=== PATIENT | male | born 1935 | race Caucasian/White ===

== ENCOUNTER 2024-06-15 06:08 | Inpatient (IN) | payer MEDICARE, BC, SELFPAY ==
[2024-05-18 13:06] VITALS: BMI 30.8
[2024-05-18 14:36] LABS: Hematocrit 32.8 % (39.0-52.0); Mean Corp Hgb Conc. 33.5 g/dL (33.0-37.0); Mean Corpuscular Hgb 31.5 pg (27.0-31.0); Platelet Count 162 10^3/uL (130-400); Red Blood Cell Count 3.49 10^6/uL (4.70-6.10); Red Cell Dist. Width 13.8 % (11.5-14.5); White Blood Cell Count 7.2 10^3/uL (4.8-10.8)
[2024-05-18 14:55] LABS: ALT (SGPT) 19 U/L (0-50); AST (SGOT) 25 U/L (17-59); Albumin 4.1 g/dl (3.5-5.0); Alkaline Phosphatase 84 U/L (38-126); Blood Urea Nitrogen 33 mg/dl (9-20); Calcium 9.2 mg/dl (8.4-10.2); Carbon Dioxide 20 mmol/L (22-30); Chloride 109 mmol/L (98-107); Estimated Creatinine Clearance 35 ml/min; Glucose 119 mg/dl (70-99); Potassium 4.4 mmol/L (3.5-5.1); Sodium 143 mmol/L (135-145); Total Bilirubin 0.3 mg/dl (0.2-1.3); eGFR 44.78
[2024-05-19 08:41] LABS: Glycohemoglobin (HgbA1c) 5.3 % (4.0-5.6)
[2024-06-09 11:50] VITALS: BMI 30.8
--- NOTE | 2024-06-09 16:16 | PTCARENOTE ---
Patient has PPM, unable to obtain instructions for OR management due to the Costumed Character Entertainer [place] after the surgery, Dr. Gonzalez made aware, ECHO, Pacer Interrogation and ECG scanned. This is sufficient per Dr. Gonzalez.
[2024-06-15] VITALS (12 sets, daily range): BP systolic 124–169; BP diastolic 56–77; PULSE 68; O2SAT 96
[2024-06-15] MEDS: CELEBREX 200 MG PO (06:26)
[2024-06-15] MEDS: TYLENOL 650 MG PO ×4 (06:26→21:14)
[2024-06-15 06:38] LABS: Glucose - Point of Care 120 mg/dl (70-99)
[2024-06-15 08:54] LABS: Glucose - Point of Care 105 mg/dl (70-99)
[2024-06-15] MEDS: ROXICODONE 5 MG PO ×2 (09:37→22:07)
[2024-06-15] MEDS: NSS 1000 IV (09:59)
[2024-06-15] MEDS: TYLENOL PO (10:00)
--- NOTE | 2024-06-15 11:03 | PTCARENOTE ---
pt admitted to 2S room 2117 from the PACU at 1000. pt arrived awake and alert, oriented to room, bed controls, call gill and plan of care with verbalized understanding. admission database and assessment completed as documented. Pt denies pain,
Right knee surgical dressing clean and dry, ice pack in place. +sensation, +pulses, good movement to both feet. daughter at bedside. AV paced on telemetry. care ongoing.
--- NOTE | 2024-06-15 11:09 | W.PN.ORTHO ---
Today's Communication / Plan
-
D/c when clinically stable.
Assessment
.
Distal Motor Intact: Yes
Dressing:
Clean, dry and intact.
Assessment:
R knee OA s/p R TKA w/ Dr Pena 06/15/24
DVT prophylaxis - ASA, b/l venous foot pumps
HTN - + parameters - monitor BP
Multivessel CAD/remote ID, status post PTCA of RCA 1987, PCI w/ stent to mid LAD 2000 and 2016, and PCI w/ SHLOMO to proximal-mid LAD for restenosis 2021
- Resume Plavix when hemodynamically stable
- Continue ASA but at 325 mg daily dosing x4 weeks for blood clot prevention
Chronic diastolic HF and pulm HTN - reduce hourly IVF rate to prevent fluid overload
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
CKD stage 3b - minimize nephrotoxins
NIDDM, A1c 5.3 - monitor BS
- Resume home meds
- + SSI
- Has Decadron at home. In discussing with pt, will attempt to hold this medication for now. If pain intensifies by tomorrow, can consider. Pt notably has well controlled diabetes as evidenced by A1c.
- Will benefit from prophylactic Cefadroxil upon d/c
GERD - continue PPI therapy
Anemia of chronic disease - non-invasive hgb in AM
HLD
Unstable angina
Mild-moderate TR
Mild MR
Acute hypoxic respiratory failure 2* pulmonary edema 04/2022
Colon polyps
Diverticulosis
Multilevel DDD w/ stenosis
Remote retinal detachment
[place] b/l
Obesity, BMI 30.8
Remote tobacco abuse
Plan
.
Surgery / Date: R TKA w/ Dr Pena 06/15/24
DVT Prophylaxis: Aspirin
Activity:
Out of bed.
PT/OT
Discharge Plan: Home w/ Outpatient PT
Subjective
.
.:
Patient resting comfortably in his room.
R knee pain minimal and well tolerated.
Denies any new significant complaints.
Vital Signs and Labs
.
Vital Signs and Labs:
Lab Results
05/18/24 12:40
05/18/24 12:40
Temp Pulse Resp BP Pulse Ox
98.7 F 71 16 169/77 97
06/15/24 06:12 06/15/24 06:12 06/15/24 06:12 06/15/24 06:12 06/15/24 06:12
Physical Exam
-
HEENT: No pallor, cyanosis, or jaundice. Throat clear.
NECK: Supple. No JVD.
RESPIRATORY: Lungs clear to auscultation.
CVS: S1, S2 normal. RRR.�+PPM.
ABDOMEN: Soft, non-tender. No distension. Obese.
EXTREMITIES: Strength equal, no calf pain with palpation/dorsiflexion. Calves soft.
MOLD DESIGN ENGINEER: AOx3. No focal deficits. event staff grossly intact
[2024-06-15 13:11] LABS: Glucose - Point of Care 282 mg/dl (70-99)
[2024-06-15] MEDS: PROTONIX 40 MG PO (13:17)
[2024-06-15] MEDS: GLUCOPHAGE XR EXTENDED RELEASE PO (13:27)
[2024-06-15] MEDS: AMARYL 1 MG PO (13:27)
[2024-06-15] MEDS: NOVOLOG FLEXPEN-MODERATE RESISTANCE 5 UNITS SC (13:28)
[2024-06-15] MEDS: ANCEF 5 IV ×2 (16:02→22:08)
[2024-06-15 16:36] LABS: Glucose - Point of Care 239 mg/dl (70-99)
[2024-06-15] MEDS: GLUCOPHAGE XR EXTENDED RELEASE 500 MG PO (17:42)
[2024-06-15] MEDS: ASPIRIN 325 MG PO (17:42)
[2024-06-15] MEDS: NOVOLOG FLEXPEN-MODERATE RESISTANCE 3 UNITS SC (17:43)
[2024-06-15 21:13] LABS: Glucose - Point of Care 338 mg/dl (70-99)
[2024-06-15] MEDS: LIPITOR 40 MG PO (21:14)
[2024-06-15] MEDS: DIOVAN 80 MG PO (21:14)
[2024-06-15] MEDS: COREG 12.5 MG PO (21:14)
[2024-06-15] MEDS: FARXIGA 10 MG PO (21:14)
[2024-06-15] MEDS: BACTROBAN 2% OINTMENT 1 APPLIC NASAL (21:15)
[2024-06-15] MEDS: SENOKOT 17.2 MG PO (21:15)
[2024-06-15] MEDS: COLACE 100 MG PO (21:15)
[2024-06-16] MEDS: TYLENOL PO (00:13)
[2024-06-16] MEDS: TYLENOL 650 MG PO ×3 (02:32→12:55)
[2024-06-16 03:02] VITALS: BP 123/56
[2024-06-16 07:49] LABS: Glucose - Point of Care 140 mg/dl (70-99)
[2024-06-16] MEDS: NOVOLOG FLEXPEN-MODERATE RESISTANCE SC ×2 (07:58→12:56)
[2024-06-16] MEDS: AMARYL 1 MG PO (08:02)
[2024-06-16] MEDS: BACTROBAN 2% OINTMENT 1 APPLIC NASAL (08:02)
[2024-06-16] MEDS: COREG 12.5 MG PO (08:04)
[2024-06-16] MEDS: ASPIRIN 325 MG PO (08:04)
[2024-06-16] MEDS: COLACE 100 MG PO (08:04)
[2024-06-16] MEDS: GLUCOPHAGE XR EXTENDED RELEASE 500 MG PO (08:04)
[2024-06-16] MEDS: SENOKOT 17.2 MG PO (08:05)
[2024-06-16] MEDS: PROTONIX 40 MG PO (08:05)
[2024-06-16 08:06] VITALS: BP 131/64
[2024-06-16] MEDS: ROXICODONE 5 MG PO ×2 (08:08→13:00)
[2024-06-16 09:30] VITALS: BP 118/63; BP 149/60; PULSE 66; O2SAT 96
--- NOTE | 2024-06-16 10:02 | CM ---
Addendum entered by Hyacinth Robertson RN 06/16/24 11:39:
CM confirmed with Tiny at [facility] they are able to accept the patient.
Addendum entered by Hyacinth Robertson RN 06/16/24 10:54:
[facility] fax: [phone]
Original Note:
Reviewed the chart notes and spoke with the patient at the bedside. The patient resides alone in an independent apartment at [facility]. The patient has a rolling walker, cane, bsc, shower chair, and shower rails. The patient
reports no VN or SNF in the past. The patient confirmed his pharmacy of choice is [facility]. Consult received for home care. Discussed with patient options of agencies. Patient selected [facility]. Referral sent in [facility].
The patient's daughter will be providing transportation home and will stay the night with the patient. CM continues to be available to patient/family and is monitoring medical plan for needs at discharge.
Plan: Discharge to home with [facility] services.
--- NOTE | 2024-06-16 10:17 | W.PN.ORTHO ---
Today's Communication / Plan
-
Await OT recs.
D/c later today if remaining clinically stable.
Assessment
.
Distal Motor Intact: Yes
Dressing:
Small areas of old incisional bleeding.
Assessment:
R knee OA s/p R TKA w/ Dr Pena 06/15/24
DVT prophylaxis - ASA, b/l venous foot pumps
HTN - + parameters - BPs overall stable
Multivessel CAD/remote MD, status post PTCA of RCA 1987, PCI w/ stent to mid LAD 2000 and 2016, and PCI w/ SHLOMO to proximal-mid LAD for restenosis 2021
- Resume Plavix POD 1 since hemodynamically stable
- Continue ASA but at 325 mg daily dosing x4 weeks for blood clot prevention
Chronic diastolic HF and pulm HTN - reduced hourly IVF rate to prevent fluid overload
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
CKD stage 3b - minimized nephrotoxins
NIDDM, A1c 5.3 - BS readings initially elevated 2* surgical stress, IV Decadron in OR, and holding of AM diabetic meds
- BS readings improved by POD 1 w/ resumption of home meds, SSI AC while inpatient
- Has Decadron at home. In discussing with pt, will hold this medication d/t increased infection risk
- Will benefit from prophylactic Cefadroxil upon d/c
GERD - continue PPI therapy
Anemia of chronic disease - non-invasive hgb 11.1 POD 1
HLD
Unstable angina
Mild-moderate TR
Mild MR
Acute hypoxic respiratory failure 2* pulmonary edema 04/2022
Colon polyps
Diverticulosis
Multilevel DDD w/ stenosis
Remote retinal detachment
[place] b/l
Obesity, BMI 30.8
Remote tobacco abuse
Plan
.
Surgery / Date: R TKA w/ Dr Pena 06/15/24
DVT Prophylaxis: Aspirin
Activity:
Out of bed.
PT/OT
Discharge Plan: Home w/ VN
Subjective
.
.:
Patient resting comfortably in his chair.
R knee pain well controlled w/ minimal pain meds.
Denies any new significant complaints.
Did well w/ PT today.
Eager for potential d/c.
Vital Signs and Labs
.
Vital Signs and Labs:
Lab Results
05/18/24 12:40
05/18/24 12:40
Temp Pulse Resp BP Pulse Ox
97.8 F 69 18 131/64 98
06/16/24 08:06 06/16/24 08:06 06/16/24 08:06 06/16/24 08:06 06/16/24 08:06
Non-invasive Hgb result: 11.1
Physical Exam
-
HEENT: No pallor, cyanosis, or jaundice. Throat clear.
NECK: Supple. No JVD.
RESPIRATORY: Lungs clear to auscultation.
CVS: S1, S2 normal. RRR.�+PPM
ABDOMEN: Soft, non-tender. No distension. Obese.
EXTREMITIES: Expected post-surgical R knee edema. Strength equal, no calf pain with palpation/dorsiflexion. Calves soft.
INSPECTOR EXPERIMENTAL ASSEMBLY: AOx3. No focal deficits. salvage diver grossly intact
--- NOTE | 2024-06-16 10:26 | W.DS.TRANS ---
DC Summary - Civil Engineer In Training
-
Discharge Instructions:
Sleep Apnea Risk Intermediate
Discharge Diagnosis/Procedures R knee OA s/p R TKA w/ Dr Pena 06/15/24
Diet Diabetic, Carb Controlled
Activity As tolerated,With Walker
Driving Restrictions Not until seen by your Dr
Bathing Restrictions OK to Shower
Other Services VN,PT
Wound Care Dressing to be removed 1 week post-surgery.
Specialty Instructions Weigh Daily
Instructions:
Stand-Alone Forms: Total Hip/Knee Replacement D/C
Changes to Home Medications: Yes
Discharge Medications:
DC Medications w/original date entered in [employer]
carvedilol 12.5 mg tablet (Coreg) 12.5 mg PO BID Heart disease/condition 09/07/16
metformin 500 mg tablet,extended release 24hr (osmotic) 500 mg PO BID@0800,1700 Diabetes 09/07/16
omega-3 fatty acids-fish oil 360 mg-1,200 mg capsule (Fish Oil) 2 cap PO DAILY Supplement 05/11/22
atorvastatin 40 mg tablet 40 mg PO HS High Cholesterol 06/09/24
clopidogrel 75 mg tablet (Plavix) 75 mg PO DAILY Blood Clot Prevention/Tx 06/09/24
empagliflozin 10 mg tablet (Jardiance) 10 mg PO HS Diabetes 06/09/24
glimepiride 2 mg tablet 1 mg PO DAILY Diabetes 06/09/24
cctzrefkxkds-ozdcwjjc-fshtsm tablet 1 tab PO DAILY Supplement 06/09/24
mupirocin 2 % topical ointment 1 applic topical BID Infection 06/09/24
omeprazole 20 mg tablet,delayed release 20 mg PO DAILY GERD 06/09/24
Saccharomyces boulardii 250 mg capsule (Florastor) 250 mg PO BID #14 caps 06/15/24
acetaminophen 500 mg tablet 1,000 mg (2 x 500 mg) PO Q6H #60 tabs 06/15/24
amlodipine 5 mg tablet (Norvasc) 5 mg PO DAILY Blood pressure #1 tab 06/15/24
aspirin 325 mg tablet 325 mg PO DAILY #30 tabs 06/15/24
cefadroxil 500 mg capsule 500 mg PO BID #14 caps 06/15/24
docusate sodium 100 mg capsule 100 mg PO BID #30 caps 06/15/24
ondansetron HCl 4 mg tablet 4 mg PO Q6H PRN nausea and vomiting #30 tabs 06/15/24
oxycodone 5 mg tablet 5 - 10 mg (1 - 2 x 5 mg) PO Q6H PRN moderate-severe pain #30 tabs 06/15/24
polyvinyl alcohol-povidone (PF) 1.4 %-0.6 % eye drops in a dropperette (Refresh Classic (PF)) 1 drops ophthalmic (eye) QIDPRN PRN dry eye #0 ea 06/15/24
sennosides 8.6 mg tablet (Senna Laxative) 17.2 mg (2 x 8.6 mg) PO BID #30 tabs 06/15/24
valsartan 80 mg tablet 80 mg PO HS #1 tab 06/15/24
Home Medication Changes
Saccharomyces boulardii 250 mg capsule (Florastor) 250 mg PO BID #14 caps 06/15/24
acetaminophen 500 mg tablet 1,000 mg (2 x 500 mg) PO Q6H #60 tabs 06/15/24
aspirin 325 mg tablet 325 mg PO DAILY #30 tabs 06/15/24
cefadroxil 500 mg capsule 500 mg PO BID #14 caps 06/15/24
docusate sodium 100 mg capsule 100 mg PO BID #30 caps 06/15/24
ondansetron HCl 4 mg tablet 4 mg PO Q6H PRN nausea and vomiting #30 tabs 06/15/24
oxycodone 5 mg tablet 5 - 10 mg (1 - 2 x 5 mg) PO Q6H PRN moderate-severe pain #30 tabs 06/15/24
sennosides 8.6 mg tablet (Senna Laxative) 17.2 mg (2 x 8.6 mg) PO BID #30 tabs 06/15/24
Pending Results: No
[2024-06-16 11:56] VITALS: BP 133/55
[2024-06-16 12:03] VITALS: BP 133/55; PULSE 64; O2SAT 96
[2024-06-16] MEDS: PREVNAR 20 0.5 ML IM (13:01)
== END 2024-06-16 13:30 | disposition home health service (06) | DRG 470 ==
LOC: 2 SOUTH 06:08
PROVIDERS: ADMITTING PHYSICIAN Specialist; FAMILY PHYSICIAN Internal Medicine; REFERRING PHYSICIAN Internal Medicine Cardiovascular Disease
PROC: 0SRC0J9 Replacement of Right Knee Joint with Synthetic Substitute, Cemented, Open Approach (ICD-10-PCS; 2024-06-15)
PROC: 3E0234Z Introduction of Serum, Toxoid and Vaccine into Muscle, Percutaneous Approach (ICD-10-PCS; 2024-06-16)
DX: M17.11 Unilateral primary osteoarthritis, right knee (principal); I50.32 Chronic diastolic (congestive) heart failure; I13.0 Hypertensive heart and chronic kidney disease with heart failure and stage 1 through stage 4 chronic kidney disease, or unspecified chronic kidney disease; I25.10 Atherosclerotic heart disease of native coronary artery without angina pectoris; I25.2 Old myocardial infarction; I27.20 Pulmonary hypertension, unspecified; Z95.0 Presence of cardiac pacemaker; I45.9 Conduction disorder, unspecified; N18.32 Chronic kidney disease, stage 3b; E11.22 Type 2 diabetes mellitus with diabetic chronic kidney disease; D63.1 Anemia in chronic kidney disease; Z79.84 Long term (current) use of oral hypoglycemic drugs; Z79.82 Long term (current) use of aspirin; Z87.891 Personal history of nicotine dependence; Z82.49 Family history of ischemic heart disease and other diseases of the circulatory system; E78.00 Pure hypercholesterolemia, unspecified; E66.9 Obesity, unspecified; Z68.30 Body mass index [BMI] 30.0-30.9, adult; I07.1 Rheumatic tricuspid insufficiency; I34.0 Nonrheumatic mitral (valve) insufficiency; Z23 Encounter for immunization
CPT/HCPCS: 36415; 73560; 80053; 82962; 83036; 85027; 86850; 86900; 86901; 87070; 90677; 97110; 97116; 97162; 97166; 97530; 97535; C1713; C1776; G0009

== ENCOUNTER → 2024-09-22 11:07 | Outpatient (REF) | payer MEDICARE, BC, SELFPAY | LOC: RAD 11:07 | PROVIDERS: ATTENDING PHYSICIAN Specialist; FAMILY PHYSICIAN Internal Medicine | DX: C44.222 Squamous cell carcinoma of skin of right ear and external auricular canal (principal) | CPT/HCPCS: 70491; Q9967 ==

== ENCOUNTER 2025-05-17 10:01 | Inpatient (IN) | payer MEDICARE, BC, SELFPAY ==
--- NOTE | 2025-04-28 14:51 | CM ---
Demographics: confirmed
Living situation: Apartment at an [facility], first floor set up.
Support Person Post Operatively: Daughter
History of
VN: [facility]
SNF: no
Outpatient:VN
Has patient purchased required equipment: yes
PCP: Aleksandr
Pharmacy: [facility]
Post Operative Discharge Plan: Patient is requesting DREA with [facility].
[2025-05-03 11:53] LABS: Hematocrit 36.2 % (39.0-52.0); Hemoglobin 11.7 g/dL (13.0-18.0); Mean Corp Hgb Conc. 32.3 g/dL (33.0-37.0); Mean Corpuscular Volume 96.5 fL (80.0-94.0); Platelet Count 161 10^3/uL (130-400); Red Cell Dist. Width 13.6 % (11.5-14.5)
[2025-05-03 12:41] LABS: ALT (SGPT) 16 U/L (0-50); AST (SGOT) 20 U/L (17-59); Albumin 3.9 g/dl (3.5-5.0); Alkaline Phosphatase 78 U/L (38-126); Blood Urea Nitrogen 28 mg/dl (9-20); Calcium 8.9 mg/dl (8.4-10.2); Carbon Dioxide 23 mmol/L (22-30); Chloride 112 mmol/L (98-107); Glucose 124 mg/dl (70-99); Potassium 4.3 mmol/L (3.5-5.1); Sodium 142 mmol/L (135-145); Total Protein 6.1 g/dl (6.3-8.2); eGFR 52.84
[2025-05-03 13:26] LABS: Glycohemoglobin (HgbA1c) 6.1 % (4.0-5.6)
[2025-05-03 13:43] VITALS: BMI 29.7
[2025-05-05 10:28] VITALS: BMI 29.7
[2025-05-17] VITALS (13 sets, daily range): BP systolic 92–161; BP diastolic 50–83; PULSE 68; O2SAT 97; BMI 29.3
[2025-05-17 10:11] LABS: Glucose - Point of Care 160 mg/dl (70-99)
[2025-05-17] MEDS: TYLENOL 650 MG PO ×4 (10:22→23:54)
[2025-05-17] MEDS: CELEBREX 200 MG PO (10:22)
[2025-05-17] MEDS: NORMOSOL-R/PLASMALYTE-A 1000 IV ×2 (10:27→15:18)
--- NOTE | 2025-05-17 12:39 | W.PN.UPDATE ---
Update Note
Progress Note Update
L hip OA s/p L LUPIS w/ Dr Pena 05/17/25
- s/p R TKA w/ Dr Pena 06/15/24
DVT prophylaxis - ASA, b/l venous foot pumps
HTN - + parameters - monitor BP
Multivessel CAD/remote FL, status post PTCA of RCA 1987, PCI w/ stent to mid LAD 2000 and 2016, and PCI w/ SHLOMO to proximal-mid LAD for restenosis 2021
- Resume Plavix when hemodynamically stable
- Continue ASA but at 325 mg daily dosing x4 weeks for blood clot prevention
Chronic diastolic HFpEF and pulm HTN - reduced hourly IVF rate to prevent fluid overload
- Monitor weight, I&Os
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
CKD stage 3b - minimize nephrotoxins
NIDDM, A1c 6.1 - monitor BS
- Resume home meds
- + SSI AC, low dose Lantus HS to accommodate for potential post-surgical BS elevations during admission
- Will benefit from prophylactic Cefadroxil upon d/c
GERD - continue PPI therapy
Anemia of chronic disease - non-invasive hgb in AM
BPH w/ LUTS - monitor voids
- Add Flomax
- Bladder scan/straight cath prn
HLD
Unstable angina
Mild valvular disease
Acute hypoxic respiratory failure 2* pulmonary edema 04/2022
Colon polyps
Diverticulosis
Multilevel DDD w/ stenosis
Remote retinal detachment, status post repair
[place] b/l
Remote tobacco abuse
[2025-05-17 13:31] LABS: Glucose - Point of Care 158 mg/dl (70-99)
[2025-05-17] MEDS: ROXICODONE 5 MG PO ×2 (14:16→23:54)
[2025-05-17] MEDS: NOVOLOG FLEXPEN-MODERATE RESISTANCE SC (14:55)
[2025-05-17] MEDS: NORVASC 5 MG PO (15:17)
[2025-05-17] MEDS: FLORASTOR 250 MG PO (15:17)
[2025-05-17] MEDS: FLOMAX 0.4 MG PO (15:17)
[2025-05-17] MEDS: PROTONIX 40 MG PO (15:17)
--- NOTE | 2025-05-17 15:40 | PTCARENOTE ---
pt received form pacu. aaox3. states 2/0 pain. pain med given in pacu. pt ambulating with PT/OT. pt now in hip chair at bedside. reviewed plan of care.
[2025-05-17] MEDS: TYLENOL PO (15:58)
[2025-05-17 16:48] LABS: Glucose - Point of Care 209 mg/dl (70-99)
[2025-05-17] MEDS: NOVOLOG FLEXPEN-MODERATE RESISTANCE 3 UNITS SC (17:40)
[2025-05-17] MEDS: ANCEF 5 IV (17:41)
[2025-05-17] MEDS: ASPIRIN 325 MG PO (17:41)
[2025-05-17] MEDS: GLUCOPHAGE XR EXTENDED RELEASE 500 MG PO (17:41)
[2025-05-17] MEDS: SENOKOT 17.2 MG PO (19:36)
[2025-05-17] MEDS: COREG 12.5 MG PO (19:36)
[2025-05-17] MEDS: BACTROBAN 2% OINTMENT 1 APPLIC NASAL (19:36)
[2025-05-17] MEDS: COLACE 100 MG PO (19:36)
[2025-05-17] MEDS: ROXICODONE 2.5 MG PO (20:05)
[2025-05-17 21:43] LABS: Glucose - Point of Care 214 mg/dl (70-99)
[2025-05-17] MEDS: LANTUS 0.05 UNITS SC (21:55)
[2025-05-17] MEDS: DIOVAN 80 MG PO (21:55)
[2025-05-17] MEDS: FARXIGA 10 MG PO (21:55)
[2025-05-17] MEDS: LIPITOR 40 MG PO (21:55)
[2025-05-18] MEDS: ANCEF 5 IV (01:53)
[2025-05-18 04:00] VITALS: BP 141/68
[2025-05-18 04:51] VITALS: BMI 29.4
[2025-05-18] MEDS: TYLENOL 650 MG PO ×2 (05:02→08:00)
[2025-05-18 07:30] VITALS: BP 146/67
[2025-05-18 07:40] LABS: Glucose - Point of Care 153 mg/dl (70-99)
[2025-05-18] MEDS: COREG 12.5 MG PO (07:59)
[2025-05-18] MEDS: NORVASC 5 MG PO (07:59)
[2025-05-18] MEDS: FLOMAX 0.4 MG PO (07:59)
[2025-05-18] MEDS: SENOKOT 17.2 MG PO (07:59)
[2025-05-18] MEDS: FLORASTOR 250 MG PO (07:59)
[2025-05-18] MEDS: COLACE 100 MG PO (07:59)
[2025-05-18] MEDS: ASPIRIN 325 MG PO (07:59)
[2025-05-18] MEDS: PROTONIX 40 MG PO (07:59)
[2025-05-18] MEDS: GLUCOPHAGE XR EXTENDED RELEASE 500 MG PO (07:59)
[2025-05-18] MEDS: BACTROBAN 2% OINTMENT 1 APPLIC NASAL (08:00)
[2025-05-18] MEDS: NOVOLOG FLEXPEN-MODERATE RESISTANCE 1 UNITS SC (08:00)
--- NOTE | 2025-05-18 08:09 | CM ---
CM reviewed medical records. Plan for discharge to home with [facility]. CM spoke with central intake. CI is requesting faxed referral to [phone].
PLAN: Home with [facility]
--- NOTE | 2025-05-18 08:50 | W.PN.ORTHO ---
Today's Communication / Plan
-
Await PT and OT recs.
D/c later today if remaining clinically stable.
Assessment
.
Distal Motor Intact: Yes
Dressing:
Scant areas of incisional bleeding. Dressing otherwise C/D/I.
Assessment:
L hip OA s/p L LUPIS w/ Dr Pena 05/17/25
- s/p R TKA w/ Dr Pena 06/15/24
DVT prophylaxis - ASA, b/l venous foot pumps
HTN - + parameters - BPs stable overall
Multivessel CAD/remote MA, status post PTCA of RCA 1987, PCI w/ stent to mid LAD 2000 and 2016, and PCI w/ SHLOMO to proximal-mid LAD for restenosis 2021
- Given scant incisional bleeding on dressing, will resume Plavix POD 2 to minimize further bleeding
- Continue ASA but at 325 mg daily dosing x4 weeks for blood clot prevention
Chronic diastolic HFpEF and pulm HTN - reduced hourly IVF rate to prevent fluid overload
- Daily weight, I&Os stable
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
CKD stage 3b - minimize nephrotoxins
NIDDM, A1c 6.1 - BS readings initially elevated 2* IV steroids in OR, post-surgical stress
- BS readings improving, however, w/ measures below
- Resume home meds
- + SSI AC, low dose Lantus HS to accommodate for potential post-surgical BS elevations during admission
- Will benefit from prophylactic Cefadroxil upon d/c
GERD - continue PPI therapy
Anemia of chronic disease - non-invasive hgb 13.4 POD 1
BPH w/ LUTS - voiding appropriately w/ added Flomax during admission. Should not need upon d/c.
- Bladder scan/straight cath prn
HLD
Unstable angina
Mild valvular disease
Acute hypoxic respiratory failure 2* pulmonary edema 04/2022
Colon polyps
Diverticulosis
Multilevel DDD w/ stenosis
Remote retinal detachment, status post repair
[place] b/l
Remote tobacco abuse
Plan
.
Surgery / Date: Eduardo BAUGH w/ Dr Pena 05/17/25
DVT Prophylaxis: Aspirin
Activity:
Out of bed.
PT/OT
Discharge Plan: Home w/ VN
Subjective
.
.:
Patient resting comfortably in his bed.
L hip pain minimal w/ current pain meds.
Denies any new significant complaints.
Eager for potential d/c today.
Vital Signs and Labs
.
Vital Signs and Labs:
Lab Results
05/03/25 11:02
05/03/25 11:02
Temp Pulse Resp BP Pulse Ox
98.3 F 75 18 146/67 95
05/18/25 04:00 05/18/25 07:59 05/18/25 04:00 05/18/25 07:59 05/18/25 04:00
Non-invasive Hgb result: 13.4
Physical Exam
-
HEENT: No pallor, cyanosis, or jaundice. Throat clear.
NECK: Supple. No JVD.
RESPIRATORY: Lungs clear to auscultation.
CVS: S1, S2 normal. RRR.�+PPM.
ABDOMEN: Soft, non-tender. No distension
EXTREMITIES: Strength equal, no calf pain with palpation/dorsiflexion. Calves soft.
SOIL ANALYST: AOx3. No focal deficits. naval aircrewman helicopter grossly intact
[2025-05-18 08:55] VITALS: BP 150/63; PULSE 76; O2SAT 97
--- NOTE | 2025-05-18 09:06 | W.DS.TRANS ---
DC Summary - Kennel Assistant
-
Discharge Instructions:
Sleep Apnea Risk Intermediate
Discharge Diagnosis/Procedures L hip OA s/p L LUPIS w/ Dr Pena 05/17/25
Diet Diabetic, Carb Controlled
Additional Diets Adequate hydration, minimize opioids, and wear
TEDs stockings to prevent low blood pressure/
dizziness.
Activity As tolerated,With Walker
Driving Restrictions Not until seen by your Dr
Bathing Restrictions OK to Shower
Other Services PT,VN,OT
Wound Care Dressing to be removed 1 week post-surgery.
Sherita to be removed at 2 week follow-up with
surgeon's office.
Specialty Instructions Weigh Daily
Instructions:
Stand-Alone Forms: Total Hip/Knee Replacement D/C
Changes to Home Medications: Yes
Discharge Medications:
DC Medications w/original date entered in [employer]
carvedilol 12.5 mg tablet (Coreg) 12.5 mg PO BID Heart disease/condition 09/07/16
metformin 500 mg tablet,extended release 24hr (osmotic) 500 mg PO BID@0800,1700 Diabetes 09/07/16
atorvastatin 40 mg tablet 40 mg PO HS High Cholesterol 06/09/24
clopidogrel 75 mg tablet (Plavix) 75 mg PO DAILY Blood Clot Prevention/Tx 06/09/24
Held on 05/18/25. Instructions: Resume on 05/19/25.
empagliflozin 10 mg tablet (Jardiance) 10 mg PO HS Diabetes 06/09/24
omeprazole 20 mg tablet,delayed release 20 mg PO DAILY GERD 06/09/24
polyvinyl alcohol-povidone (PF) 1.4 %-0.6 % eye drops in a dropperette (Refresh Classic (PF)) 1 drops ophthalmic (eye) QIDPRN PRN dry eye #0 ea 06/15/24
multivitamin 1 tab PO DAILY Supplement 04/29/25
cefadroxil 500 mg capsule 500 mg PO DAILY #7 caps 05/03/25
mupirocin 2 % topical ointment 1 applic intranasal BID #1 tube 05/03/25
ondansetron HCl 4 mg tablet 4 mg PO Q6H PRN nausea and vomiting #30 tabs 05/03/25
oxycodone 5 mg tablet 5 - 10 mg (1 - 2 x 5 mg) PO Q6H PRN moderate-severe pain #30 tabs 05/03/25
Saccharomyces boulardii 250 mg capsule 250 mg PO DAILY #7 caps 05/18/25
acetaminophen 500 mg tablet 1,000 mg (2 x 500 mg) PO Q6H pain #1 tab 05/18/25
amlodipine 5 mg tablet (Norvasc) 5 mg PO DAILY Blood pressure #1 tab 05/18/25
aspirin 325 mg tablet 325 mg PO DAILY #30 tabs 05/18/25
docusate sodium 100 mg capsule 100 mg PO BID #30 caps 05/18/25
magnesium hydroxide 400 mg/5 mL oral suspension (Milk of Magnesia) 30 ml PO HS PRN constipation #3,780 mL 05/18/25
sennosides 8.6 mg tablet (Sahara-dandre) 17.2 mg (2 x 8.6 mg) PO BID #30 tabs 05/18/25
valsartan 80 mg tablet 80 mg PO HS #1 tab 05/18/25
Home Medication Changes
cefadroxil 500 mg capsule 500 mg PO DAILY #7 caps 05/03/25
ondansetron HCl 4 mg tablet 4 mg PO Q6H PRN nausea and vomiting #30 tabs 05/03/25
oxycodone 5 mg tablet 5 - 10 mg (1 - 2 x 5 mg) PO Q6H PRN moderate-severe pain #30 tabs 05/03/25
Saccharomyces boulardii 250 mg capsule 250 mg PO DAILY #7 caps 05/18/25
acetaminophen 500 mg tablet 1,000 mg (2 x 500 mg) PO Q6H pain #1 tab 05/18/25
aspirin 325 mg tablet 325 mg PO DAILY #30 tabs 05/18/25
docusate sodium 100 mg capsule 100 mg PO BID #30 caps 05/18/25
magnesium hydroxide 400 mg/5 mL oral suspension (Milk of Magnesia) 30 ml PO HS PRN constipation #3,780 mL 05/18/25
sennosides 8.6 mg tablet (Sahara-dandre) 17.2 mg (2 x 8.6 mg) PO BID #30 tabs 05/18/25
Pending Results: No
[2025-05-18 10:32] VITALS: BP 141/56; PULSE 73; O2SAT 97
[2025-05-18 11:00] VITALS: BP 141/66
== END 2025-05-18 11:45 | disposition home health service (06) | DRG 470 ==
LOC: 2 SOUTH 10:01
PROVIDERS: ADMITTING PHYSICIAN Specialist; FAMILY PHYSICIAN Internal Medicine; REFERRING PHYSICIAN Internal Medicine Cardiovascular Disease
PROC: 0SRB02A Replacement of Left Hip Joint with Metal on Polyethylene Synthetic Substitute, Uncemented, Open Approach (ICD-10-PCS; 2025-05-17)
DX: M16.12 Unilateral primary osteoarthritis, left hip (principal); I13.0 Hypertensive heart and chronic kidney disease with heart failure and stage 1 through stage 4 chronic kidney disease, or unspecified chronic kidney disease; I50.32 Chronic diastolic (congestive) heart failure; I25.110 Atherosclerotic heart disease of native coronary artery with unstable angina pectoris; E11.65 Type 2 diabetes mellitus with hyperglycemia; D63.1 Anemia in chronic kidney disease; N18.32 Chronic kidney disease, stage 3b; E11.22 Type 2 diabetes mellitus with diabetic chronic kidney disease; E78.5 Hyperlipidemia, unspecified; H91.93 Unspecified hearing loss, bilateral; I27.20 Pulmonary hypertension, unspecified; I45.10 Unspecified right bundle-branch block; K21.9 Gastro-esophageal reflux disease without esophagitis; K57.30 Diverticulosis of large intestine without perforation or abscess without bleeding; M51.369 Other intervertebral disc degeneration, lumbar region without mention of lumbar back pain or lower extremity pain; M48.00 Spinal stenosis, site unspecified; N40.1 Benign prostatic hyperplasia with lower urinary tract symptoms; T38.0X5A Adverse effect of glucocorticoids and synthetic analogues, initial encounter; Z96.651 Presence of right artificial knee joint; I25.2 Old myocardial infarction; Z79.02 Long term (current) use of antithrombotics/antiplatelets; Z79.4 Long term (current) use of insulin; Z79.82 Long term (current) use of aspirin; Z87.891 Personal history of nicotine dependence; Z95.0 Presence of cardiac pacemaker; Z95.5 Presence of coronary angioplasty implant and graft
CPT/HCPCS: 36415; 73502; 80053; 82962; 83036; 85027; 86850; 86900; 86901; 87070; 97110; 97116; 97163; 97167; 97530; 97535; C1713; C1776